=== PATIENT | male | born 1970 | race Caucasian/White ===

== ENCOUNTER 2021-04-26 10:22 | Emergency (ER) | payer MEDICARE ==
[2021-04-26 11:08] VITALS: O2SAT 98
[2021-04-26 12:27] VITALS: BP 138/84; PULSE 82
[2021-04-26 12:36] LABS: Appearance CLEAR (CLEAR); Bilirubin NEGATIVE (NEGATIVE); Blood NEGATIVE Ery/ul (0-5); Glucose >=500 mg/dL (NEGATIVE); Ketones TRACE (NEGATIVE); Leukocyte Esterase NEGATIVE (NEGATIVE); Nitrite NEGATIVE (NEGATIVE); Protein,Urine Dip NEGATIVE (Negative); Specific Gravity 1.017 (1.005-1.025); Urobilinogen NEGATIVE mg/dL (0-1)
--- NOTE | 2021-04-26 13:03 | ERPHSYRPT ---
- History of Present Illness Time Seen by Provider: 04/26/21 10:27 Source: patient Exam Limitations: no limitations Patient Subjective Stated Complaint: Pt states "I have chronic back pain and my back hurts today. I also have a sore throat for the past two days." Triage Nursing Assessment: Pt presnted alert and oriented X 3, skin wpd Pt ambulates with an upright slow gait, able to speak in clear full sentences. Pt in no apparent respiratory distress. Physician History: 51-year-old presented with chief complaint of sore throat, nasal congestion for the last couple of days. His fiance have similar symptoms. Wanted to be tested for COVID-19. Patient does have chronic back pain is having a little more pain than usual. Denies any urinary symptoms. Denies any numbness tingling weakness of lower extremities. Pain is more with ambulation and better with resting. Denies any loss of bowel or bladder control. Timing/Duration: gradual onset, days (2) Severity: moderate ENT Location: throat Prearrival Treatment: no prearrival treatment Associated Symptoms: nasal congestion/drainage, sore throat, No ear pain (R), No ear pain (L), No cough, No fever, No chills, No change in hearing, No dizziness, No drooling, No ear drainage, No facial pain/swelling, No headache, No hearing loss, No jaw pain, No motion sickness, No epistaxis, No nasal foreign body, No neck pain, No poor fluid intake, No poor solids intake, No ringing of ears, No swollen glands, No sinus infection, No tooth pain, No difficulty swallowing, No voice change Allergies/Adverse Reactions: amoxicillin Allergy (Severe, Verified 04/26/21 11:09) Swelling cephalexin [From Keflex] Allergy (Severe, Verified 04/26/21 11:09) Swelling Penicillins Allergy (Severe, Verified 04/26/21 11:09) Swelling Sulfa (Sulfonamide Antibiotics) Allergy (Severe, Verified 04/26/21 11:08) Swelling hydrocodone Allergy (Intermediate, Verified 04/26/21 11:09) Hives Home Medications: Metformin HCl [Metformin HCl ER] 750 mg PO DAILY 04/26/21 [History] Trazodone HCl 50 mg [Desyrel 50 mg] 50 mg PO DAILY 04/26/21 [History] Triamterene/Hydrochlorothiazid [Triamterene-Hctz 37.5-25 mg Tb] 1 tab PO DAILY 04/26/21 [History] clonazePAM [Clonazepam] 1 mg PO DAILY 04/26/21 [History] Hx Tetanus, Diphtheria Vaccination/Date Given: Yes Hx Influenza Vaccination/Date Given: Yes Hx Pneumococcal Vaccination/Date Given: No Immunizations Up to Date: Yes Travel Risk - International Travel Have you traveled outside of the country in past 3 weeks: No - Coronavirus Screening Are you exhibiting any of the following symptoms?: No Close contact with a COVID-19 positive Pt in past 14-21 Days: No - Vaccine Status Have you recieved a Covid-19 vaccination: Yes Shoe Shanker: Moderna - Vaccination Dates Date of 2cond Vaccination (if applicable): 02/28/2021 - Review of Systems Constitutional: No Symptoms Eyes: No Symptoms Ears, Nose, & Throat: Nose Congestion, Throat Pain Respiratory: No Symptoms Cardiac: No Symptoms Genitourinary Symptoms: No Symptoms Musculoskeletal: Back Pain Skin: No Symptoms Neurological: No Symptoms Endocrine: No Symptoms Hematologic/Lymphatic: No Symptoms Immunological/Allergic: No Symptoms - Past Medical History Pertinent Past Medical History: Yes Neurological History: No Pertinent History Cardiac History: Hypertension Respiratory History: Asthma Endocrine Medical History: Diabetes Type II Musculoskeletal History: Arthritis GI Medical History: No Pertinent History History: No Pertinent History Psycho-Social History: No Pertinent History Male Reproductive Disorders: No Pertinent History - Past Surgical History Past Surgical History: Yes Other Surgical History: hernia - Social History Smoking Status: Current every day smoker How long have you smoked: years Exposure to second hand smoke: Yes Drug Use: none Patient Lives Alone: No - Nursing Vital Signs Nursing Vital Signs: Initial Vital Signs Temperature 98.5 F 04/26/21 11:00 Pulse Rate 88 04/26/21 11:00 Respiratory Rate 20 04/26/21 11:00 Blood Pressure 145/90 04/26/21 11:00 O2 Sat by Pulse Oximetry 98 04/26/21 11:00 Pain Scale Pain Intensity 4 - Physical Exam General Appearance: no apparent distress, alert Eye Exam: bilateral eye: normal inspection, PERRL, EOMI Ear Exam: bilateral ear: auricle normal, canal normal, TM normal Nasal Exam: normal inspection Throat Exam: moist mucus membranes Neck Exam: normal inspection, non-tender, full range of motion Cardiovascular/Respiratory Exam: normal breath sounds, regular rate/rhythm Neurologic Exam: alert, oriented x 3, cooperative, 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 Negative neuro exam in lower extremities suggesting cauda equina. Negative strep throat and Covid. I believe patient has viral pharyngitis, recommended supportive care. Discussed signs symptoms of worsening needing return to ER which he seems understanding. Stable for discharge. Counseled pt/family regarding: lab results, diagnosis, need for follow-up - Departure Departure Disposition: Home Clinical Impression: Acute pharyngitis, unspecified Qualifiers: Pharyngitis/tonsillitis etiology: other specified organisms Qualified Code(s): J02.8 - Acute pharyngitis due to other specified organisms Condition: Stable Critical Care Time: No Referrals: MAITE RON [Primary Care Provider] - Follow Up with PCP/3 days Instructions: Viral Pharyngitis (DC) Additional Instructions: Take Tylenol as needed. Continue with your muscle relaxants. Drink plenty of fluids. Follow-up with primary care for reevaluation. Return to ER for worsening sore throat or if developed difficulty breathing, fever chills. Also return to ER for intractable back pain, numbness tingling weakness of lower extremities/loss of bowel or bladder control.
== END 2021-04-26 13:15 | disposition home or self-care (01) ==
LOC: ED 10:22
DX: J02.8 Acute pharyngitis due to other specified organisms (principal)
CPT/HCPCS: 81001; 87651; 99283; U0003